=== PATIENT | male | born 2000 | race Caucasian/White ===

== ENCOUNTER 2023-10-01 12:10 | Emergency (ER) | payer OTHER ==
[~2023-10-01] VITALS: Ht 190.5 cm; Wt 97.2 kg
[2023-10-01 14:55] LABS: HEMATOCRIT 46.8 % (42.0-52.0); HEMOGLOBIN 16.4 g/dl (13.5-17.5); MEAN CORPUSCULAR HEMOGLOBIN 30.9 pg (27.0-33.0); MEAN CORPUSCULAR VOLUME 88.1 fl (80.0-96.0); PLATELET COUNT, AUTOMATED 283 10^3/uL (150-450); RED BLOOD COUNT 5.31 10^6/uL (4.30-6.10); WHITE BLOOD COUNT 16.1 10^3/uL (4.0-10.0)
[2023-10-01] MEDS: NS 1,000 ML IV ONE (15:09)
[2023-10-01] MEDS: KETOROLAC 30 MG/ML 1ML VIAL IV ONE (15:10)
[2023-10-01] MEDS: AMPICILLIN SOD/SULBACTAM SOD 3 GM in D5W MINI-BAG PLUS 100 ML IV ONE (15:10)
[2023-10-01 15:41] LABS: ATYPICAL LYMPH 48 % (0-5); EOSINOPHILS 1 % (0-3); LYMPHOCYTES 7 % (16-44); MONOCYTES 2 % (0-5); NEUTROPHILS 39 % (28-66)
[2023-10-01 15:42] LABS: PLATELET ESTIMATE NORMAL (NORMAL)
[2023-10-01 17:04] LABS: MONO SCRN POSITIVE (NEGATIVE)
[2023-10-01 17:07] LABS: BLOOD UREA NITROGEN 7 MG/DL (9-23); CALCIUM LEVEL 8.6 MG/DL (8.5-10.1); CARBON DIOXIDE LEVEL 26 MMOL/L (20-31); CHLORIDE LEVEL 106 MMOL/L (98-107); CREATININE FOR GFR 0.99 MG/DL (0.70-1.30); GLOMERULAR FILTRATION RATE > 60.0 (>60); GLUCOSE, FASTING 94 MG/DL (60-100); POTASSIUM SERUM 4.2 MMOL/L (3.5-5.1); SODIUM LEVEL 137 MMOL/L (136-145)
[2023-10-01] MEDS ORDERED: PRED20TA PO (18:16)
[2023-10-01 18:55] VITALS: BP 131/64; TEMP 98.3; O2SAT 99
== END 2023-10-01 18:58 | disposition home or self-care (01) ==
LOC: M ED 12:10
DX: B27.90 Infectious mononucleosis, unspecified without complication (principal); J02.9 Acute pharyngitis, unspecified
CPT/HCPCS: 80048; 85025; 86140; 86308; 87880; 96365; 96366; 96375; 99284; J0295; J1100; J1885

== ENCOUNTER 2024-03-28 20:16 | Emergency (ER) | payer OTHER ==
[~2024-03-28] VITALS: Ht 188 cm; Wt 101.9 kg
[~2024-03-28 20:16] MED LIST: PRED20TA PO
[2024-03-28 23:39] VITALS: BP 141/85; TEMP 100.1; O2SAT 100
== END 2024-03-28 23:55 | disposition home or self-care (01) ==
LOC: M ED 20:16
DX: J09.X2 Influenza due to identified novel influenza A virus with other respiratory manifestations (principal)

== ENCOUNTER → 2024-05-14 | Outpatient (CLI) | payer OTHER | LOC: M PLAIMG 13:54 | PROVIDERS: ATTEND Otolaryngology | DX: J32.0 Chronic maxillary sinusitis (principal); Z98.890 Other specified postprocedural states ==

== ENCOUNTER → 2024-10-21 | Outpatient (CLI) | payer OTHER | LOC: M RAD 10:50 | PROVIDERS: ATTEND Otolaryngology | DX: J32.0 Chronic maxillary sinusitis (principal) ==

== ENCOUNTER 2025-01-18 18:16 | Emergency (ER) | payer OTHER ==
[~2025-01-18] VITALS: Ht 188 cm; Wt 102.3 kg
[2025-01-18 18:18] VITALS: BP 145/76; TEMP 97.7; O2SAT 100
== END 2025-01-18 20:11 | disposition home or self-care (01) ==
LOC: M ED 18:16
DX: S06.0X0A Concussion without loss of consciousness, initial encounter (principal); S83.92XA Sprain of unspecified site of left knee, initial encounter; W00.0XXA Fall on same level due to ice and snow, initial encounter; Y92.481 Parking lot as the place of occurrence of the external cause; Y93.89 Activity, other specified; Y99.9 Unspecified external cause status